=== PATIENT | male | born 1970 | race Caucasian/White ===

== ENCOUNTER 2020-07-16 13:42 | Emergency (ER) | payer OTHER ==
--- NOTE | 2020-07-16 15:26 | ED Physician Documentation ---
History of Present Illness - Stated complaint Stated Complaint: LT LEG PX - Chief complaint Chief Complaint: Ext Problem - Additonal information Additional information: 49-year-old male presents emergency department for evaluation of left calf and posterior knee pain after working out yesterday. However he is concerned because he has a history of varicose veins. He has had ablation therapy on his right leg but not yet on his left. He states that the skin is quite sensitive to touch. 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 No hormone use no surgery no unilateral leg swelling recent immobilization travel history of clots or cancer. This gentleman is requesting an ultrasound. Review of Systems Constitutional: denies: Fever, Chills Eyes: reports: Reviewed and negative Ears: reports: Reviewed and negative Nose: reports: Reviewed and negative Throat: reports: Reviewed and negative Cardiac: reports: Reviewed and negative Respiratory: reports: Reviewed and negative GI: reports: Reviewed and negative : reports: Reviewed and negative Skin: reports: Other (Extensive varicose veins left leg.) Musculoskeletal: reports: Extremity pain (Left knee, left calf.) Neurologic: reports: Reviewed and negative PD PAST MEDICAL HISTORY - Past Medical History Past Medical History: No Cardiovascular: None Respiratory: None Neuro: None Endocrine/Autoimmune: None GI: None : None HEENT: None Psych: None Musculoskeletal: None Derm: None Other Past Medical History: vericose veins - Past Surgical History Past Surgical History: No - Allergies Allergies/Adverse Reactions: Allergies Allergy/AdvReac Type Severity Reaction Status Date / Time No Known Drug Allergies Allergy Verified 07/16/20 13:45 - Social History Does the pt smoke?: No Smoking Status: Never smoker Does the pt drink ETOH?: Yes Does the pt have substance abuse?: No - Immunizations Immunizations are current?: Yes PD ED PE EXPANDED - General General: Alert, No acute distress - Extremities Extremities: Left leg (Extensive varicose veins especially medially near the knee and superior calf. No swelling or erythema noted. Mild tenderness elicited with deep palpation posterior calf. No unilateral leg swelling.) Results - Vitals Vitals: Vital Signs - 24 hr 07/16/20 07/16/20 13:45 16:20 Temperature 36.6 C 36.7 C Heart Rate 72 82 Respiratory 16 14 Rate Blood Pressure 136/86 H 136/85 H O2 Saturation 98 98 Oxygen O2 Source Room air - Rads (name of study) US DVT Radiology: Final report received (No thrombus is identified in the deep venous system of the left lower extremity. The thrombus is identified in the left lower extremity superficial venous system at the level of the left popliteal fossa left proximal calf.) PD MEDICAL DECISION MAKING - ED course Complexity details: reviewed results, re-evaluated patient, d/w patient ED course: 49-year-old male presents emergency department for evaluation of pain in his left posterior knee in the setting of a history of varicose veins. He is concerned that he could have a deep vein thrombosis. The ultrasound does not reveal a DVT however he does have superficial venous thrombus at the level of the popliteal fossa and the proximal calf. These findings were discussed with the patient. No anticoagulation is warranted at this time. He is advised to continue to follow-up with the physician in which he has seen in the past for his varicose veins. He may benefit from further ablation of the varicose veins in the left leg. Emergent return precautions were discussed. Departure - Departure Disposition: 01 Home, Self Care Clinical Impression: Superficial vein thrombosis Condition: Stable Record reviewed to determine appropriate education?: Yes Instructions: ED Phlebitis Superficial Comments: Yunior no deep vein thrombosis was seen in your left leg. You do have superfici al vein thrombus near your left knee. This is in the area where your varicose veins are. This is not an unexpected finding. Anticoagulation is not warranted for superficial vein thrombus in your location. Ibuprofen can be used to help with discomfort. You may also benefit by placing a warm compress over the varicose veins on your left knee and thigh. I do advise that you discuss this ED visit with your primary care doctor or the surgeon for which you had ablation of your right leg. You may benefit from further ablation on the left leg. If at any point you develop leg swelling, have fevers shortness of breath or chest pain or concern of deep vein thrombosis please return to the ER for a second look.
[2020-07-16 16:21] VITALS: BP 136/85
--- NOTE | 2020-07-16 16:34 | Ultrasound Report ---
PROCEDURE: Duplex Ext Veins Left INDICATIONS: pain in calf and behind knee. r/o dvt TECHNIQUE: Real-time imaging, as well as color and pulse Doppler interrogation, were performed of the lower extr emity deep veins from the inguinal ligament to the popliteal fossa. COMPARISON: None. FINDINGS: The deep veins are normally compressible, and free of intraluminal thrombus. Color and pu lse Doppler demonstrate normal phasic intraluminal flow. There is normal augmentation response to di stal compression maneuver. Thrombosed venous varicosity noted from the left popliteal fossa to the left proximal calf. IMPRESSION: 1. No thrombosis identified in the deep venous system of the left lower extremity. 2. Thrombus is identified in the left lower extremity superficial venous system at the level of the l eft popliteal fossa/left proximal calf. Reviewed by: Francesca Armenta MD, PhD on 07/16/2020 4:33 PM PDT Approved by: Francesca Armenta MD, PhD on 07/16/2020 4:33 PM PDT Station ID: [id number]
== END 2020-07-16 16:57 | disposition home or self-care (01) ==
LOC: ED 13:42
DX: I82.812 Embolism and thrombosis of superficial veins of left lower extremity (principal); I83.92 Asymptomatic varicose veins of left lower extremity
CPT/HCPCS: 99283